=== PATIENT | male | born 1985 | race African-American/Black ===

== ENCOUNTER 2018-11-04 10:27 | Emergency (ER) | payer SELFPAY ==
[2018-11-04] MEDS ORDERED: CLINDAMYCIN 600 MG/50 ML 50 ML IV ONE (12:43)
[2018-11-04] MEDS ORDERED: BUFFERED LIDOCAINE 10 ML SYRINGE SUBQ STA (12:43)
[2018-11-04] MEDS ORDERED: PROPOFOL 200 MG/20 ML VIAL IVP STA (12:43)
[2018-11-04] MEDS ORDERED: ONDANSETRON 4 MG/2 ML VIAL IVP STA (12:43)
--- NOTE | 2018-11-04 12:44 | ED Physician Documentation ---
History of Present Illness - Stated complaint Stated Complaint: LEG BUMP/V/WEAKNESS - Chief complaint Chief Complaint: General - History obtained from History obtained from: Patient - History of Present Illness Timing: Other (33-year-old gentleman with a painful cyst on the left side of the scrotum.'s been there for a couple of days. About 9 months ago he had an incision and drainage cyst and exactly the same place. He says he did not tolerate the incision and drainage very well. Over the last couple of days because of the pain he has been throwing up. Has not kept anything down today.) Review of Systems Ten Systems: 10 systems reviewed and negative Constitutional: denies: Fever, Chills Cardiac: denies: Chest pain / pressure, Palpitations Respiratory: denies: Dyspnea, Cough GI: reports: Nausea. denies: Abdominal Pain PD PAST MEDICAL HISTORY - Present Medications Home Medications: Ambulatory Orders Medication Instructions Recorded Confirmed Clindamycin HCl [Clindamycin 300MG 300 mg PO Q6H #40 capsule 11/04/18 CAP] Hydrocodone/Acetaminophen 1 - 2 each PO Q6H PRN #14 tablet 11/04/18 [Hydrocodon-Acetaminophen 5-325] Ondansetron Odt [Zofran] 4 mg TL Q6H PRN #10 tablet 11/04/18 - Allergies Allergies/Adverse Reactions: Allergies Allergy/AdvReac Type Severity Reaction Status Date / Time No Known Drug Allergies Allergy Verified 11/04/18 10:50 - Social History Does the pt smoke?: Yes Smoking Status: Current every day smoker Does the pt drink ETOH?: Yes Does the pt have substance abuse?: No PD ED PE NORMAL - Vitals Vital signs reviewed: Yes - General General: Alert and oriented X 3, No acute distress - HEENT HEENT: Pharynx benign - Neck Neck: Supple, no meningeal sign, No bony TTP - Cardiac Cardiac: RRR, No murmur - Respiratory Respiratory: No respiratory distress, Clear bilaterally - Abdomen Abdomen: Non tender - Extremities Extremities: Other (On the left side of scrotum kind of in the inguinal crease there is a large pointed abscess. No pain out of proportion to exam. No drainage. No crepitance.) - Neuro Neuro: Alert and oriented X 3, Normal speech Results - Vitals Vitals: Vital Signs - 24 hr 11/04/18 11/04/1811/04/19 10:48 12:31 13:06 Temperature 36.8 C 36.7 C Heart Rate 86 74 78 Respiratory 20 18 20 Rate Blood Pressure 135/46 H 151/96 H 165/107 H O2 Saturation 98 99 99 11/04/18 13:15 Temperature Heart Rate 94 Respiratory 22 Rate Blood Pressure 156/112 H O2 Saturation 98 Oxygen O2 Source Room air - Labs Labs: Laboratory Tests 11/04/18 11/04/18 12:57 12:57 WBC 13.9 H RBC 5.19 Hgb 16.2 Hct 47.3 MCV 91.1 MCH 31.2 H MCHC 34.2 RDW 13.7 Plt Count 222 MPV 9.8 Neut # (Auto) 11.2 H Lymph # (Auto) 1.7 Brooke # (Auto) 0.8 Eos # (Auto) 0.2 Baso # (Auto) 0.0 Absolute Nucleated RBC 0.00 Nucleated RBC % 0.0 Sodium 139 Potassium 3.8 Chloride 100 L Carbon Dioxide 28 Anion Gap 11.0 BUN 11 Creatinine 1.0 Estimated GFR (MDRD) 104 Glucose 98 Calcium 9.3 Total Bilirubin 0.6 AST 16 ALT 23 Alkaline Phosphatase 90 Total Protein 7.9 Albumin 4.5 Globulin 3.4 Albumin/Globulin Ratio 1.3 Lipase 32 Procedures - Abscess I&D (location) Groin abscess left Preparation: Betadine, Lidocaine 1%, Conscious sedation Incision: Incised with scalpel, Purulent drainage, Loculations broken, Culture obtained Other: Pt tolerated well, Dressing applied, Antibiotic prescribed - Procedural sedation Sedation prep: Informed consent, AHA 1 - healthy Sedation medications: propofol (total of 200mg in divided doses) Patient status during sedation: Responds to tactile, Vitals remained stable, Maintained airway, Recovered uneventfully Sedation recovery: Recovered uneventfully Time in sedation (Minutes): 12 PD MEDICAL DECISION MAKING - ED course ED course: He has recurrent groin abscess, he says he did not tolerate it very well the last time it was incised and local anesthetic. He was sedated with propofol and it went very well and it was packed with half-inch packing. He also received an IV dose of clindamycin here. Departure - Departure Disposition: 01 Home, Self Care Clinical Impression: Groin abscess Condition: Good Record reviewed to determine appropriate education?: Yes Instructions: ED Abscess IandD Prescriptions: Clindamycin HCl [Clindamycin 300MG CAP] 300 mg PO Q6H #40 capsule Hydrocodone/Acetaminophen [Hydrocodon-Acetaminophen 5-325] 1 - 2 each PO Q6H PRN #14 tablet PRN Reason: pain Ondansetron Odt [Zofran] 4 mg TL Q6H PRN #10 tablet PRN Reason: Nausea / Vomiting Comments: Return here on , the for wound check, culture review, packing removal. Sooner if worse. Forms: Activity restrictions
[2018-11-04 13:04] LABS: BASOPHILS % (AUTO) 0.3 %; EOSINOPHILS # (AUTO) 0.2 10^3/uL (0.0-0.7); EOSINOPHILS % (AUTO) 1.1 %; HGB - HEMOGLOBIN 16.2 g/dL (14.0-18.0); LYMPHOCYTES # (AUTO) 1.7 10^3/uL (1.5-3.5); LYMPHOCYTES % (AUTO) 12.4 %; MEAN CORPUSCULAR HEMOGLOBIN 31.2 pg (27.0-31.0); MEAN CORPUSCULAR HGB CONC 34.2 g/dL (32.0-36.0); MEAN CORPUSCULAR VOLUME 91.1 fL (80.0-94.0); MEAN PLATELET VOLUME 9.8 fL (7.4-11.4); MONOCYTES # (AUTO) 0.8 10^3/uL (0.0-1.0); MONOCYTES % (AUTO) 5.6 %; NEUTROPHILS # (AUTO) 11.2 10^3/uL (1.5-6.6); NEUTROPHILS % (AUTO) 80.2 %; PLT - PLATELET COUNT 222 10^3/uL (130-450); RED BLOOD COUNT 5.19 10^6/uL (4.70-6.10); RED CELL DISTRIBUTION WIDTH 13.7 % (12.0-15.0); WHITE BLOOD COUNT 13.9 x10^3/uL (4.8-10.8)
[2018-11-04 13:18] LABS: ALBUMIN 4.5 g/dL (3.2-5.5); ALBUMIN/GLOBULIN RATIO 1.3 (1.0-2.2); BILIRUBIN,TOTAL 0.6 mg/dL (0.2-1.0); CALCIUM 9.3 mg/dL (8.5-10.3); TOTAL PROTEIN 7.9 g/dL (6.7-8.2)
[2018-11-04 13:20] VITALS: BP 138/126
== END 2018-11-04 14:00 | disposition home or self-care (01) ==
LOC: ED 10:27
DX: L02.214 Cutaneous abscess of groin (principal); F17.200 Nicotine dependence, unspecified, uncomplicated
CPT/HCPCS: 10060; 36415; 80053; 83690; 85025; 87070; 87077; 87181; 87205; 94770; 96365; 96375; 99152